=== PATIENT | female | born 1985 | race Caucasian/White ===

== ENCOUNTER 2020-09-26 12:15 | Observation (INO) | payer OTHER ==
[~2020-09-26] VITALS: Ht 162.6 cm; Wt 88.5 kg
[~2020-09-26 12:15] MED LIST: MOTRIN
[2020-09-26] MEDS ORDERED: RINGERS SOLUTION,LACTATED 1,000 ML IV SCH (13:00)
[2020-09-26] MEDS ORDERED: ACETAMINOPHEN 325 MG TABLET PO ONE (13:30)
[2020-09-26 13:48] VITALS: BP 115/71
== END 2020-09-26 15:35 | disposition home or self-care (01) ==
LOC: 4S 12:15
PROVIDERS: ADMIT Obstetrics & Gynecology; ATTEND Obstetrics & Gynecology
DX: O26.893 Other specified pregnancy related conditions, third trimester (principal); R10.9 Unspecified abdominal pain; Z3A.35 35 weeks gestation of pregnancy; W18.39XA Other fall on same level, initial encounter; Y93.89 Activity, other specified; Y92.89 Other specified places as the place of occurrence of the external cause
CPT/HCPCS: 59025; 76805; 81001; 96360; 96361; 99219; J7120

== ENCOUNTER 2020-09-26 17:28 | Observation (INO) | payer OTHER ==
[~2020-09-26] VITALS: Ht 165.1 cm; Wt 93.0 kg
[2020-10-24] MEDS ORDERED: PREN1TAB80 PO (09:42)
[2020-10-24 09:44] VITALS: BP 102/71
== END 2020-10-24 11:55 | disposition home or self-care (01) ==
LOC: 4S 10-24 09:30
PROVIDERS: ADMIT Obstetrics & Gynecology; ATTEND Obstetrics & Gynecology
DX: O62.9 Abnormality of forces of labor, unspecified (principal); Z3A.39 39 weeks gestation of pregnancy
CPT/HCPCS: 59025; 99219

== ENCOUNTER 2020-10-24 12:56 | Inpatient (IN) | payer OTHER ==
[~2020-10-24] VITALS: Ht 165.1 cm; Wt 89.8 kg
[~2020-10-24 12:56] MED LIST changes: +PREN1TAB80 PO
[2020-10-27] MEDS ORDERED: LIDOCAINE/PF 1% 30 ML VIAL SQ PRN (13:00)
[2020-10-27] MEDS ORDERED: OXYTOCIN 10 UNITS/ML VIAL IM ONE (13:00)
[2020-10-27] MEDS ORDERED: GLYCERIN/WITCH HAZEL LEAF 40 PADS JAR TP PRN (13:00)
[2020-10-27] MEDS ORDERED: BENZOCAINE 20%/MENTHOL 56 GM SPRAY CANISTER TP PRN (13:00)
[2020-10-27] MEDS ORDERED: OxyCODONE HCL/ACETAMINOPHEN 5-325 MG TABLET PO PRN ×2 (13:00)
[2020-10-27] MEDS ORDERED: LANOLIN 7 GM OINTMENT TP PRN (13:00)
[2020-10-27] MEDS ORDERED: MAGNESIUM HYDROXIDE SUSPENSION 30 ML UDCUP PO PRN (13:00)
[2020-10-27] MEDS ORDERED: OXYTOCIN 30 UNITS/LACT RINGERS 500 ML IV ONE (13:00)
[2020-10-27] MEDS ORDERED: LIDOCAINE/PF 1% 30 ML VIAL IM ONE (13:00)
[2020-10-27] MEDS ORDERED: RINGERS SOLUTION,LACTATED 1,000 ML IV ONE (13:28)
[2020-10-27] MEDS: IBUPROFEN 800 MG TABLET PO PRN ×2 (17:35→23:55)
[2020-10-27 18:18] VITALS: BP 109/60
[2020-10-27 18:41] LABS: BASOPHILS % (AUTO) 0.2 % (0.0-2.0); EOSINOPHILS % (AUTO) 0.1 % (1.0-6.0); HEMATOCRIT 36.3 % (36-46); HEMOGLOBIN 11.6 g/dL (12.0-16.0); LYMPHOCYTES # (AUTO) 1.7 K/uL (1.0-4.8); LYMPHOCYTES % (AUTO) 11.3 % (22.0-44.0); MEAN CORPUSCULAR HEMOGLOBIN 25.7 pg (26.0-34.0); MEAN CORPUSCULAR HGB CONC 31.9 G/dL (31.0-37.0); MEAN CORPUSCULAR VOLUME 80 fL (80-100); MONOCYTES # (AUTO) 0.9 K/uL (0.1-1.0); MONOCYTES % (AUTO) 5.6 % (2.0-9.0); NEUTROPHILS # (AUTO) 12.7 K/uL (1.8-7.7); NEUTROPHILS % (AUTO) 82.8 % (40.0-70.0); PLATELET COUNT (AUTO)-OB 142 K/uL (150-450); RED BLOOD CELL COUNT(AUTO) 4.51 MIL/uL (4.00-5.20); RED CELL DISTRIBUTION WIDTH 15.9 % (11.5-14.5)
[2020-10-27 21:53] LABS: COVID AG,FIA SOURCE NASOPHARYNGEAL
[2020-10-28 06:49] LABS: BASOPHILS % (AUTO) 0.1 % (0.0-2.0); EOSINOPHILS % (AUTO) 0.5 % (1.0-6.0); HEMATOCRIT 33.8 % (36-46); HEMOGLOBIN 10.9 g/dL (12.0-16.0); LYMPHOCYTES % (AUTO) 22.2 % (22.0-44.0); MEAN CORPUSCULAR HEMOGLOBIN 25.9 pg (26.0-34.0); MEAN CORPUSCULAR HGB CONC 32.1 G/dL (31.0-37.0); MEAN CORPUSCULAR VOLUME 81 fL (80-100); MONOCYTES % (AUTO) 7.2 % (2.0-9.0); NEUTROPHILS # (AUTO) 9.5 K/uL (1.8-7.7); PLATELET COUNT (AUTO)-OB 136 K/uL (150-450); RED CELL DISTRIBUTION WIDTH 15.7 % (11.5-14.5)
[2020-10-28] MEDS ORDERED: RINGERS SOLUTION,LACTATED 1,000 ML IV SCH (08:00)
[2020-10-28] MEDS ORDERED: ACETAMINOPHEN 1000 MG/ISO-OSM 100 ML IV ONE (11:21)
[2020-10-28] MEDS ORDERED: RINGERS SOLUTION,LACTATED 1,000 ML IV ONE (11:45)
[2020-10-28] MEDS ORDERED: DEXAMETHASONE SOD PHOS 4 MG/ML VIAL IVP ONE (12:00)
[2020-10-28] MEDS ORDERED: PROPOFOL 1% 20 ML VIAL IVP ONE (12:00)
[2020-10-28] MEDS ORDERED: KETOROLAC TROMETHAMINE 60 MG/2 ML VIAL IM ONE (12:00)
[2020-10-28] MEDS ORDERED: METOCLOPRAMIDE HCL 5 MG/ML 2 ML VIAL IVP ONE (12:00)
[2020-10-28] MEDS ORDERED: ONDANSETRON HCL 4 MG/2 ML VIAL IVP ONE (12:00)
[2020-10-28] MEDS ORDERED: MIDAZOLAM HCL 2 MG/2 ML VIAL IVP ONE (12:00)
[2020-10-28] MEDS ORDERED: FentaNYL CITRATE PF 100 MCG/2 ML VIAL IVP ONE (12:00)
[2020-10-28 12:15] VITALS: BP 118/59
[2020-10-28] MEDS ORDERED: IBUP-2070 PO (16:38)
[2020-10-28] MEDS ORDERED: ACET-3385 PO (16:39)
[2020-10-28] MEDS ORDERED: FERR-89 PO (16:40)
== END 2020-10-28 18:10 | disposition home or self-care (01) | DRG 541 ==
LOC: OBSVTOIN 10-27 12:25 → 4S 10-27 12:25
PROVIDERS: ADMIT Obstetrics & Gynecology; ATTEND Obstetrics & Gynecology
PROC: 10E0XZZ Delivery of Products of Conception, External Approach (ICD-10-PCS; principal; 2020-10-27)
PROC: 0UB70ZZ Excision of Bilateral Fallopian Tubes, Open Approach (ICD-10-PCS; 2020-10-27)
PROC: 10907ZC Drainage of Amniotic Fluid, Therapeutic from Products of Conception, Via Natural or Artificial Opening (ICD-10-PCS; 2020-10-27)
PROC: 0KQM0ZZ Repair Perineum Muscle, Open Approach (ICD-10-PCS; 2020-10-27)
DX: O70.1 Second degree perineal laceration during delivery (principal); Z20.822 Contact with and (suspected) exposure to COVID-19; Z37.0 Single live birth; Z3A.39 39 weeks gestation of pregnancy
CPT/HCPCS: 85025; 86850; 86900; 86901; 87426; 88302; J0131; J1100; J1885; J2250; J2405; J2590; J2704; J2765; J3010; J3490; J7120